=== PATIENT | male | born 1985 | race Caucasian/White ===

== ENCOUNTER 2020-07-15 17:20 | Emergency (ER) | payer OTHER ==
[~2020-07-15] VITALS: Ht 182.9 cm; Wt 90.7 kg
--- NOTE | 2020-07-15 17:30 | NUR ---
DR TALLEY AT BEDSIDE
--- NOTE | 2020-07-15 17:35 | NUR ---
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 NOTED WITH STUTTERING. AWAITING MD CRAWFORD
[2020-07-15] MEDS ORDERED: KETOROLAC TROMETHAMINE 15 MG/ML VIAL ONE (17:45)
[2020-07-15] MEDS ORDERED: ASPIRIN 325 MG TABLET ONE (17:46)
[2020-07-15] MEDS ORDERED: NITROGLYCERIN 0.4 MG/TAB BOTTLE ONE (17:46)
[2020-07-15 17:49] LABS: BASOPHILS % (AUTO) 0.4 % (0.0-2.0); EOSINOPHILS % (AUTO) 0.2 % (0.0-6.0); HEMATOCRIT 49 % (39-51); HEMOGLOBIN 16.2 g/dL (13.5-17.5); LYMPHOCYTES # (AUTO) 3.1 /CMM (0.8-4.8); MEAN CORPUSCULAR HGB CONC 33 g/dl (31.0-36.0); MEAN CORPUSCULAR VOLUME 88 fL (80-96); MONOCYTES # (AUTO) 1.2 /CMM (0.1-1.30); MONOCYTES % (AUTO) 9.2 % (2.0-12.0); NEUTROPHILS # (AUTO) 8.1 /CMM (1.8-8.9); NEUTROPHILS % (AUTO) 65.2 % (43.0-81.0); PLATELET COUNT (AUTO) 289 /CMM (150-450); RED BLOOD CELL COUNT(AUTO) 5.51 MIL/uL (4.5-6.0); WHITE BLOOD COUNT (AUTO) 12.5 K/uL (4.3-11.0)
--- NOTE | 2020-07-15 17:53 | NUR ---
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
[2020-07-15 17:56] LABS: CALCIUM, SERUM 9.4 mg/dL (8.5-10.1); CARBON DIOXIDE 26 mmol/L (21-32); CHLORIDE 102 mmol/L (98-107); CREATININE 0.9 mg/dL (0.6-1.3); GLUCOSE 110 mg/dL (74-106); POTASSIUM 3.2 mmol/L (3.5-5.1); SODIUM SERUM 140 mmol/L (136-145); UREA NITROGEN, BLOOD 13 mg/dL (7-18)
[2020-07-15] MEDS ORDERED: KETOROLAC TROMETHAMINE INJ 30 MG/ML VIAL IV ONE (18:00)
[2020-07-15] MEDS ORDERED: NITROGLYCERIN 0.4 MG/TAB BOTTLE SL ONE (18:00)
[2020-07-15] MEDS ORDERED: ASPIRIN 325 MG TABLET PO ONE (18:00)
[2020-07-15 18:08] LABS: B-TYPE NATRIURETIC PEPTIDE 16 PG/ML (0-125)
--- NOTE | 2020-07-15 18:18 | NUR ---
DR TALLEY SPEAKING TO THE MOTHER OF PATIENT. 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 MD WILL ORDER CT SCAN
--- NOTE | 2020-07-15 18:43 | NUR ---
PICKED UP BY [facility] SPECIALIST VIA [facility] FOR CT SCAN.
--- NOTE | 2020-07-15 18:49 | NUR ---
SPOKE TO UNCLE(ELIJAH) INFORMED HIM THAT THE PATIENT STILL NEEDS A RIDE HOME
--- NOTE | 2020-07-15 19:14 | NUR ---
Patient given written and verbal discharge instructions. Patient verbalizes understanding of instructions. Patient is ambulatory with steady gait. Refuses offer of assisted placement. Patient given list of available shelters in surrounding area. Patient discharged with proper clothing. Per patient, mother will pick him up from waiting room. name band removed.
[2020-07-15 19:18] VITALS: BP 132/90
== END 2020-07-15 19:18 | disposition home or self-care (01) ==
LOC: ER 17:25
DX: R07.89 Other chest pain (principal); R06.02 Shortness of breath; R51 Headache
CPT/HCPCS: 36415; 70450; 71045; 80048; 83880; 84484; 85025; 93005 ×2; 96374; 99285; J1885